=== PATIENT | male | born 1940 | race Caucasian/White ===

== ENCOUNTER 2018-12-21 04:56 | Inpatient (IN) ==
[2018-12-14 12:31] LABS: Appearance,Urine CLEAR; Bilirubin,Urine NEG (NEG); Color,Urine STRAW; Glucose,Urine (UA) NEGATIVE (NEG); Ketones,Urine NEG (NEG); Leukocyte Esterase,Urine NEG /uL (NEG); Nitrate,Urine NEG (NEG); Protein,Urine NEG (NEG); Specific Gravity,Urine 1.012 (1.000-1.035); Urine Blood NEG mg/dL (<0.03); Urobilinogen,Urine NEG (NEG)
[2018-12-14 13:01] LABS: Basophils # (Auto) 0 K/mcL (0.0-0.3); Basophils % (Auto) 0.4 % (0.0-2.0); Eosinophils # (Auto) 0.1 K/mcL (0.0-0.7); Eosinophils % (Auto) 2.7 % (0.0-7.0); Granulocytes % (Auto) 54.9 % (38.0-78.0); Hematocrit 44.3 % (41.0-55.0); Hemoglobin 14.6 g/dL (13.5-16.5); Lymphocytes # (Auto) 1.9 K/mcL (1.5-4.8); Lymphocytes % (Auto) 33.9 % (15.5-49.0); Mean Cell Volume 89.5 fL (80.0-100.0); Mean Platelet Volume 8.7 fL (7.4-10.4); Monocytes # (Auto) 0.4 K/mcL (0.1-0.9); Monocytes % (Auto) 8.1 % (1.0-12.0); Platelet Count 237 K/mcL (140-440); RBC 4.95 M/mcL (4.50-5.90); Red Cell Distribution Width 13.2 % (11.5-14.5); WBC 5.5 K/mcL (4.5-11.0)
[2018-12-21] MEDS ORDERED: SCOPOLAMINE 1 PATCH PATCH TOPICAL PRN (05:00)
[2018-12-21] MEDS ORDERED: IPRATROPIUM/ALBUTEROL 3 ML AMPUL.NEB NEB PRN ×2 (05:00→09:41)
[2018-12-21] MEDS ORDERED: PREGABALIN 75 MG CAPSULE PO SCH (06:00)
[2018-12-21] MEDS ORDERED: CELECOXIB 200 MG CAPSULE PO SCH (06:00)
[2018-12-21] MEDS ORDERED: oxyCODONE 10 MG TAB.ER.12H PO SCH (06:00)
[2018-12-21] MEDS ORDERED: ceFAZolin 2 GM in DEXTROSE 5% IN WATER 50 ML IV SCH (06:00)
[2018-12-21] MEDS ORDERED: 0.9 % SODIUM CHLORIDE 9 ML, KETOROLAC 30 MG, ROPIVACAINE HCL/PF 49.5 ML, EPINEPHrine 0.... IJ SCH (06:00)
[2018-12-21] MEDS ORDERED: LIDOCAINE HCL/PF 100 MG/5 ML SYRINGE IV ONE (07:45)
[2018-12-21] MEDS ORDERED: PROPOFOL 200 MG/20 ML VIAL IV ONE (07:45)
[2018-12-21] MEDS ORDERED: DEXAMETHASONE 10 MG/ML VIAL IV ONE (07:45)
[2018-12-21] MEDS ORDERED: KETAMINE 100 MG/ML ML IV ONE (07:45)
[2018-12-21] MEDS ORDERED: ROPIVACAINE HCL/PF 30 ML VIAL IJ ONE (07:45)
[2018-12-21] MEDS ORDERED: ONDANSETRON 4 MG/2 ML VIAL IV ONE (07:45)
[2018-12-21] MEDS ORDERED: TRANEXAMIC ACID 1,000 MG/10 ML VIAL IV ONE ×2 (07:45→10:06)
[2018-12-21] MEDS ORDERED: ACETAMINOPHEN 1,000 MG/100 ML BOTTLE IV ONE (09:41)
[2018-12-21] MEDS ORDERED: LACTATED RINGERS 250 ML IV PRN (09:41)
[2018-12-21] MEDS ORDERED: PROMETHAZINE 25 MG/ML VIAL IV PRN (09:41)
[2018-12-21] MEDS ORDERED: FLUMAZENIL 0.1 MG/ML ML IV PRN (09:41)
[2018-12-21] MEDS ORDERED: NALOXONE HCL 0.4 MG/ML VIAL IV PRN (09:41)
[2018-12-21] MEDS ORDERED: BENZOCAINE/MENTHOL 1 LOZENGE PO PRN ×2 (09:41→10:06)
[2018-12-21] MEDS ORDERED: MEPERIDINE 25 MG/ML SYRINGE IV PRN (09:41)
[2018-12-21] MEDS ORDERED: fentaNYL 100 MCG/2 ML VIAL IV PRN (09:41)
[2018-12-21] MEDS ORDERED: ONDANSETRON 4 MG/2 ML VIAL IV PRN ×2 (09:41→10:06)
[2018-12-21] MEDS ORDERED: diphenhydrAMINE 50 MG/ML VIAL IV PRN (09:41)
[2018-12-21] MEDS ORDERED: LACTATED RINGERS 1,000 ML IV SCH (09:45)
--- NOTE | 2018-12-21 10:02 | Brief Operative Note ---
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
[2018-12-21] MEDS ORDERED: FLEETS ADULT ENEMA PR PRN (10:06)
[2018-12-21] MEDS ORDERED: BISACODYL 10 MG SUPP.RECT PR PRN (10:06)
[2018-12-21] MEDS ORDERED: POLYETHYLENE GLYCOL 3350 17 GM PACKET PO PRN (10:06)
[2018-12-21] MEDS ORDERED: MAGNESIUM HYDROXIDE 30 ML ORAL.SUSP PO PRN (10:06)
[2018-12-21] MEDS ORDERED: DEXTROSE 31 GM ORAL.SUSP PO PRN (10:10)
[2018-12-21] MEDS ORDERED: DEXTROSE 50% 50 ML VIAL IV PRN (10:10)
[2018-12-21] MEDS ORDERED: SUMAtriptan SUCCINATE 50 MG TABLET PO PRN (10:11)
[2018-12-21] MEDS: KETOROLAC 15 MG/ML VIAL IV SCH ×3 (11:33→23:16)
[2018-12-21] MEDS: 0.9 % SODIUM CHLORIDE 1,000 ML IV SCH ×2 (11:34→19:16)
--- NOTE | 2018-12-21 11:34 | Operative Note ---
DATE OF OPERATION: 12/21/2018 PREOPERATIVE DIAGNOSIS: Left failing total knee arthroplasty. POSTOPERATIVE DIAGNOSIS: Left failing total knee arthroplasty. PROCEDURE PERFORMED: Left revision total knee arthroplasty with removal of all prior total knee components and placing a Benld triathlon size 6 total stabilized femoral component with a stem, size 6 tibial baseplate with a stem, 11 mm total stabilized tibial insert with a 39 patellar button. SURGEON: Almas Viveros MD [facility] SUPERVISOR: Heriberto Tatum PA-C. This provider's expertise and technical skill were required throughout the case. The PA assisted with preoperative coordination, intraoperative retraction, wound closure, dressing and splint application, as well as postoperative documentation and care coordination. ANESTHESIA: Spinal plus general. DRAINS: None. SPECIMENS: Culture and sensitivity of joint fluid as well as removed total knee components. FINDINGS: Osteolysis in the tibia. BLOOD LOSS: 50 mL COMPLICATIONS: None. POSTOPERATIVE CONDITION: Stable. INDICATIONS FOR SURGERY: This is a 78-year-old male who had his knee replaced 22 years ago. He has been developing increased pain in the knee. Radiographs showed some osteolysis around the screws of the tibial baseplate and he did get relief from a diagnostic intraarticular local anesthetic injected. PROCEDURE IN DETAIL: He elected to proceed with revision total knee arthroplasty. Correct operative site was marked in preoperative holding after informed consent had been obtained which included discussion of risks including, but not limited to, bleeding, possibly requiring transfusion; infection, possibly requiring implant removal, prolonged IV antibiotics; injury to nerves, blood vessels, and other surrounding structures; anesthetic risks; incomplete or no resolution of symptoms, instability; DVT and pulmonary embolus risks, infection, possibly requiring amputation of the leg. He understood and still wished to proceed. Correct operative site was marked. The patient received spinal anesthesia. He was then taken to the operating room and LMA general given. Left lower extremity was carefully prepped and draped in normal sterile fashion. A timeout was performed verifying patient name, operative site, and plan. Esmarch was used to exsanguinate the extremity and tourniquet was inflated. Ioban was used to cover all skin surfaces and a midline incision was made with a scalpel through skin and subcutaneous tissue through his previous scar. There were multiple Ethibond sutures from his prior surgery which we tried to remove as much as possible with a rongeur. We then used a deep knife to make our medial parapatellar arthrotomy. He had minimal joint effusion but we did culture this. Subperiosteal exposure was done of the anterior medial tibia and then we removed scar tissue from behind the patella. We then popped the patellar polyethylene off. Osteotome was used to loosen and remove the metal patella baseplate. We then did a preliminary lateral facetectomy as his patella is very large and then placed a cut protector. We were then able to sublux the patella off to the side and flexed the knee up. We levered and removed out the tibial insert. This did appear to have significant wear. We then used a flexible osteotome and started working this around the femoral component. Once we had it as best as we could loosen we then used a fishmouth and a mallet to disimpact it. There was mild bone loss. We then subluxed the tibia forward. The screws were removed and then the tibial base plate was loosened with the flexible osteotome and then a fishmouth was used to disimpact and remove this. We then start curetting the screw holes and there was, particularly on the lateral side a significant cavity where the screw had been. We then started reaming down the canal and then once we got cortical chatter we used the reamer to place our cut guide. We did this to do just a minimal bone resection to get to fresh bone. We made our tibial cut. We then used the [employer] reamer and keel punch and then an assembled tibia with stem was applied and then we impacted this. We then used the articulating femoral cut guide from the [employer] on the femur. We placed this at the approximate guide point for the medial epicondyle, pinned this into place and then placed an 11 insert. It was good in flexion but extension was tight, so we did remove the pin and moved the femur proximally and took the knee into extension and then pinned it into place there. The rotation appeared to be set well from balancing with the tibia, so we did our final pinning. We only needed 5 mm wedge cuts on distal, medial and lateral; no wedges were needed posteriorly. We did, prior to doing this step, ream up the femur, which was quite large. We then removed everything and assembled a stemmed femoral trial and then the 11 insert was placed. The knee was then taken into extension. We prepared the patella 39 medialize maximally. Holes were drilled and trial placed and then a further lateral facetectomy was performed. We then checked our patellar tracking and it was good, so we then opened all our implants. We had irrigated IrriSept after entering the joint. We removed our trial implants and irrigated IrriSept again. Implants were assembled on the back table. We then pulse lavaged copiously with saline while antibiotic cement was mixed and then we used the CO2 gun to clean and dry the cancellous bone surfaces. We cemented the tibia only in its proximal portion. The stem was left cementless. This was impacted and excess cement removed. We then cemented the femur in a similar manner leaving the stem uncemented and then the 11 insert trial was placed and the knee was taken into extension. Excess cement removed. Patellar button was cemented and excess cement removed and then the knee was held in full extension while cement hardened. We filled the joint with IrriSept and injected pain cocktail. After that had fully hardened, we flexed the knee up and removed the trial insert. We did use a curved osteotome posterior medially to get rid of some impinging bone behind the femoral component. We injected pain cocktail in the posterior medial capsule and then the definitive 11 insert total stabilized was opened. The tray was irrigated with IrriSept and then the insert was impacted, and then the stabilizing metal pin was impacted down the center of the post. We then held the knee in full extension and IrriSept filled the joint. After a minute we pulse lavaged with saline. The knee was then flexed up to 45 degrees of flexion. Interrupted #2 FiberWire [id number] were used around the superior quadrant of the patella, interrupted #1 Vicryl [id number] around the inferior quadrant, running #1 Vicryl was used for patellar tendon and quad tendon. Final IrriSept irrigation was done, after a minute final pulse lavage, and then 2-0 Monocryl for subcutaneous and tor for skin. Xeroform sterile dressings were applied. Tourniquet was released prior to skin closure at hours. He was then awakened, extubated, and transferred to recovery in stable condition. [email or web address] Job ID: [id number] Doc ID: [id number] Almas Viveros MD
--- NOTE | 2018-12-21 11:46 | XRay Report ---
CLINICAL INFORMATION: Post-op total knee COMPARISON: None. FINDINGS: Long stem knee prosthesis is anatomically aligned. No osseous abnormalities. Periarticular gas and soft tissue swelling seen expected. IMPRESSION: Negative Interpreted and Authenticated by: Dwight Nash 12/21/18
[2018-12-21] MEDS: INSULIN LISPRO 1 UNIT/0.01 ML UNIT SQ SCH ×3 (12:50→20:32)
[2018-12-21] MEDS: HYDROCODONE/APAP 7.5/325MG TABLET PO PRN ×3 (12:50→20:20)
[2018-12-21] MEDS: 0.9 % SODIUM CHLORIDE 10 ML SYRINGE IV SCH ×2 (13:50→22:30)
[2018-12-21] MEDS: ceFAZolin 1 GM VIAL IV SCH ×2 (15:05→23:16)
[2018-12-21] MEDS: metFORMIN 500 MG TABLET PO SCH (17:13)
[2018-12-21] MEDS: TOPIRAMATE 25 MG TABLET PO SCH (20:19)
[2018-12-21] MEDS: DOCUSATE SODIUM 100 MG CAPSULE PO SCH (20:20)
[2018-12-21] MEDS ORDERED: ASPIRIN 81 MG TAB.CHEW ONE (20:21)
[2018-12-21] MEDS: GEMFIBROZIL 600 MG TABLET PO SCH (20:21)
[2018-12-21] MEDS: ASPIRIN 81 MG TAB.CHEW CHEWED SCH (20:25)
[2018-12-21] MEDS ORDERED: ASPIRIN 325 MG ENTERIC COATED TABLET PO SCH (21:00)
[2018-12-21] MEDS ORDERED: SENNOSIDES 1 TABLET PO SCH (21:00)
[2018-12-22] MEDS: HYDROCODONE/APAP 7.5/325MG TABLET PO PRN ×3 (00:21→08:37)
[2018-12-22] MEDS: 0.9 % SODIUM CHLORIDE 1,000 ML IV SCH (02:13)
[2018-12-22] MEDS: KETOROLAC 15 MG/ML VIAL IV SCH (05:38)
[2018-12-22] MEDS: 0.9 % SODIUM CHLORIDE 10 ML SYRINGE IV SCH (05:38)
[2018-12-22 06:09] LABS: Hematocrit 35.4 % (41.0-55.0); Hemoglobin 11.6 g/dL (13.5-16.5)
[2018-12-22 06:11] LABS: INR 1.2 (0.9-1.1); Prothrombin Time 14.8 sec (11.9-14.5)
[2018-12-22] MEDS: INSULIN LISPRO 1 UNIT/0.01 ML UNIT SQ SCH (07:15)
--- NOTE | 2018-12-22 07:40 | Discharge Summary ---
Providers - Providers Patient information: Note initiated : 12/22/18 at 7:37 am Service Date, if different from initiated Date: [] Patient: Zack Gallagher 78 y/o M admitted on 12/21/18 for Left Total Knee Arthroplasty Revision. Chief Complaint: [] Discharge date: 12/22/18 Hospitalization Hospital Course: Pt was admitted for a L revision TKA. Pt underwent the procedure on the day of admission. Pt was transferred to the floor for IV pain meds, IV abx, and PT. Pt discharged on Post-op day 1. Will f/u in 2 weeks. Discharge diagnosis: L knee pain failed TKA Exam - Exam Incision draining: Yes Weight bearing status: as tolerated Ortho Discharge - TKA - Patient Instructions Diet: Regular Diet Activity: activity as tolerated Total Knee Protocol: For Total Knee: Start ROM [place] with stationary bike or rocking chair. Work on gaining full extension of knee. Posterior dislocation precautions provided. Hip abductor strengthening and gait training instructions provided. Apply Cryocuff as instructed. Dressing Care: May shower in 2 days - Follow Up Plan Disposition: Home, Self-Care Prognosis: Good Rehab Potential: Good Overall status at discharge: patient is progressing back to baseline - Orders For Discharge Prescriptions: Hydrocodone/APAP 7.5/325Mg [[place] 7.5-325Mg] 1 - 2 tab PO Q4HP PRN #80 tab PRN Reason: Pain Level 3-6 Prescription Printed Pending Studies Resuscitation Status Full Code Diet Consistent Carbohydrate Diet Start WedDec 21 1008 Hydrocodone Bitart/Acetaminophen ([place] 7.5/325mg) 0 tab PO Q4HP PRN PRN Reason: PAIN LEVEL 3-6 Last Admin: 12/22/18 04:46 Dose: 2 tab Documented by: Admin: 12/22/18 00:21 Dose: 2 tab Documented by: Admin: 12/21/18 20:20 Dose: 2 tab Documented by: Admin: 12/21/18 16:43 Dose: 2 tab Documented by: Admin: 12/21/18 12:50 Dose: 2 tab Documented by: GHADA Aspirin (Aspirin) 81 mg CHEWED BID [facility] Last Admin: 12/21/18 20:25 Dose: Not Given Documented by: VIOLETA Diagnostic Test (Pha) (Accu-Chek) 1 each FS ACHS [facility] Last Admin: 12/22/18 07:15 Dose: 1 each [facility] Admin: 12/21/18 20:21 Dose: 1 each Documented by: Admin: 12/21/18 16:45 Dose: 1 each [facility]ed [facility]: [facility] Admin: 12/21/18 12:44 Dose: 1 each Documented [facility]: [facility] Docusate Sodium (Colace) 100 mg PO BID [facility] Last Admin: 12/21/18 20:20 Dose: 100 mg Documented by: VIOLETA Gemfibrozil (Lopid) 600 mg PO BID [facility] Last Admin: 12/21/18 20:21 Dose: 600 mg Documented by: VIOLETA Sodium Chloride (Sodium Chloride 0.9%) 1,000 mls @ 125 mls/hr IV .Q8H [facility] Last Admin: 12/22/18 02:13 Dose: Not Given Documented by: Infusion: 12/21/18 23:31 Dose: 0 mls/hr Documented by: Admin: 12/21/18 19:16 Dose: 125 mls/hr Documented by: Infusion: 12/21/18 19:16 Dose: 125 mls/hr Documented by: Admin: 12/21/18 11:34 Dose: 125 mls/hr [facility]ed [facility]: [facility] Insulin Human Lispro (Humalog) 0 unit SQ [facility]; Protocol Last Admin: 12/22/18 07:15 Dose: Not Given Documented [facility]: [facility] Admin: 12/21/18 20:32 Dose: 6 units Documented by: Admin: 12/21/18 17:12 Dose: 6 units Documented by: [facility] Admin: 12/21/18 12:50 Dose: 6 units [facility]ed [facility]: [facility] Ketorolac Tromethamine (Toradol) 15 mg IV Q6 [facility] Stop: 12/23/18 06:01 Last Admin: 12/22/18 05:38 Dose: 15 mg Documented by: Admin: 12/21/18 23:16 Dose: 15 mg Documented by: Admin: 12/21/18 17:23 Dose: 15 mg Documented by: [facility] Admin: 12/21/18 11:33 Dose: 15 mg Documented by: [email or web address] Metformin HCl (Glucophage) 500 mg PO BIDCC [facility] Last Admin: 12/21/18 17:13 Dose: 500 mg Documented by: [email or web address] Morphine Sulfate (Morphine) 0 mg IV Q1HP PRN PRN Reason: PAIN LEVEL > 6 Last Admin: 12/21/18 11:47 Dose: 2 mg Documented by: [email or web address] Senna (Senokot) 2 tab PO HS [facility] Last Admin: 12/21/18 20:21 Dose: 2 tab Documented by: [facility] Sodium Chloride (Saline Flush) 10 ml IV Q8 [facility] Last Admin: 12/22/18 05:38 Dose: 10 ml Documented by: [facility] Admin: 12/21/18 22:30 Dose: Not Given Documented by: [facility] Admin: 12/21/18 13:50 Dose: Not Given Documented by: [email or web address] Topiramate (Topamax) 50 mg PO BID [facility] Last Admin: 12/21/18 20:19 Dose: 50 mg Documented by: VIOLETA Shift Summary 12/22/18 03:16 Shift Summary by Sharri Jones A&O x4. Pt slept for approximately 4 hours this shift. Medicated with 2 tabs [place] Q4H this shift for pain. Pt does not like taking aspirin - states he bleeds really easy as is. Pt agreeable to taking aspirin this shift, but wants to watch to make sure he doesn't start bleeding. Voiding per urinal - PVR around 400 each time but has large output and states he feels like he emptied his bladder. 2100 blood sugar was 236 - 6 units Humalog coverage. Pt does not use insulin at home. Up with SBA, FWW, and GB. 18G IV to the L forearm is SL and patent. Shadow drainage to L knee dressing. VSS on RA. Will update at bedside. Initialized on 12/22/18 03:16 - END OF NOTE
[2018-12-22] MEDS: metFORMIN 500 MG TABLET PO SCH (08:24)
[2018-12-22] MEDS: DOCUSATE SODIUM 100 MG CAPSULE PO SCH (08:24)
[2018-12-22] MEDS: TOPIRAMATE 25 MG TABLET PO SCH (08:24)
[2018-12-22] MEDS: GEMFIBROZIL 600 MG TABLET PO SCH (08:24)
[2018-12-22] MEDS: ASPIRIN 81 MG TAB.CHEW CHEWED SCH (10:32)
== END 2018-12-22 10:49 | disposition home or self-care (01) | DRG 468 ==
LOC: MEDSUR 04:56
PROVIDERS: ADMIT Orthopaedic Surgery; ATTEND Orthopaedic Surgery